=== PATIENT | female | born 1985 ===

== ENCOUNTER 2016-07-05 13:28 | Emergency (ER) | payer OTHER ==
--- NOTE | 2016-07-05 14:12 | UC ---
Throat Pain/Nasal Juarez HPI - HPI Summary HPI Summary: complaint nasal congestion and cough approx 9 days ago fever for 1 day, 3days ago- 102 sore throat which has been worsening intermittent headaches, feels fatigued denies N/V/D taking tylenol without relief - History of Current Complaint Chief Complaint: UCRespiratory Stated Complaint: COUGH SORE THROAT HEADACHE Time Seen by Provider: 07/05/16 14:04 Hx Obtained From: Patient - Allergies/Home Medications Allergies/Adverse Reactions: Allergies Allergy/AdvReac Type Severity Reaction Status Date / Time No Known Allergies Allergy Verified 07/05/16 13:47 Home Medications: Home Medications Acetaminophen [Tylenol] 650 mg PO 07/05/16 [History] PMH/Surg Hx/FS Hx/Imm Hx Previously Healthy: Yes Endocrine History Of: Denies: Diabetes, Thyroid Disease Cardiovascular History Of: Denies: Cardiac Disorders, Hypertension Respiratory History Of: Denies: COPD, Asthma GI/ History Of: Denies: Ulcer - Surgical History Surgical History: None - Family History Known Family History: Negative: Cardiac Disease, Hypertension, Diabetes - Social History Occupation: Employed Full-time Lives: With Family Alcohol Use: None Substance Use Type: None Smoking Status (MU): Never Smoked Tobacco Review of Systems Constitutional: Fever Skin: Negative Eyes: Negative ENT: Sore Throat, Ear Ache, Nasal Discharge Respiratory: Cough Cardiovascular: Negative Gastrointestinal: Negative Genitourinary: Negative Motor: Negative Neurovascular: Negative Musculoskeletal: Negative Neurological: Headache Psychological: Negative All Other Systems Reviewed And Are Negative: Yes Physical Exam Triage Information Reviewed: Yes Appearance: No Pain Distress, Well-Nourished Vital Signs: Initial Vital Signs Temp 97.8 F 07/05/16 13:44 Pulse 72 07/05/16 13:44 Resp 18 07/05/16 13:44 BP 107/74 07/05/16 13:44 Pulse Ox 100 07/05/16 13:44 Vital Signs Reviewed: Yes Eyes: Positive: Conjunctiva Clear ENT: Positive: Pharyngeal erythema, Nasal congestion, Nasal drainage, TMs normal , Tonsillar swelling, Tonsillar exudate Neck: Positive: No Lymphadenopathy Respiratory: Positive: Lungs clear, Normal breath sounds, No respiratory distress Cardiovascular: Positive: RRR, No Murmur, Pulses Normal Abdomen Description: Positive: Nontender, Soft Bowel Sounds: Positive: Present Musculoskeletal Exam: Normal Neurological: Positive: Alert Psychological Exam: Normal Skin Exam: Normal Throat Pain/Nasal Course/Dx - Differential Dx/Diagnosis Differential Diagnosis/HQI/PQRI: Pharyngitis, Tonsillitis, URI Provider Diagnoses: viral pharyngitis Discharge - Discharge Plan Condition: Stable Disposition: HOME Patient Education Materials: Pharyngitis (ED) Referrals: [facility] [facility] [Outside] Additional Instructions: PHARYNGITIS (Sore Throat) What is Pharyngitis? The medical name for a sore throat is Pharyngitis. It is caused by an infection or irritation of your throat or tonsils. The infection can be caused by a virus or by bacteria. Not everyone with Pharyngitis needs antibiotics. Antibiotics will not make viral infections better, and they will not help a sore throat caused by irritation. Symptoms May Include: Sore throat Swelling of the glands in the neck Trouble or pain with swallowing Fever Headache Cough Extreme tiredness Ear pain Treatment Recommendations: Gargle every few hours with a solution of 1/4 teaspoon of salt dissolved in 1/ 2 cup of warm water. Drink plenty of warm beverages, like tea with lemon, (with or without honey) and soup. You may eat and drink cold foods and liquids like frozen yogurt, popsicles, and ice water if that makes your throat feel better. The goal is to keep you well hydrated. Use a "cool-mist" vaporizer or humidifier in the room where you spend most of your time. If you get a sore throat often, consider adding an electronic air filter and humidifier to your furnace system. Don't smoke. Do not eat spicy foods. Take medicine exactly as prescribed. If you do not think it is helping, call your healthcare provider. Do not increase how much or how often you take it without getting their OK first. Non-prescription anti-inflammatory medicine like ibuprofen (Motrin, Advil) or naproxen (Aleve) may help lessen the pain. You should not take these medicines if you have had bleeding in your stomach in the past. Acetaminophen ( Tylenol) is another choice of medicine that may help the pain. If pain medicine that makes you tired or sleepy or contains narcotics is prescribed, you should not drink, drive, or participate in any other activities that you need to be clear-headed for. Please keep all medicines out of the reach of children. Do not get in close contact with anyone you know who has a sore throat. Use throat lozenges (Cepostat, [place], etc.) or suck on hard candy for temporary relief of the pain with swallowing. (Do not give to children under age 5.) Call Your Doctor or Return Here IF: Your symptoms do not start to get better within 2 days or you become worse. You have a fever over 101.0 F orally. You cant swallow liquids or saliva. You are drooling. You start to have trouble breathing. You start to have a rash. You start to have a stiff neck. You start to have pain in your chest. You start to have any symptoms that are new or worry you.
== END 2016-07-05 14:47 | disposition home or self-care (01) ==
LOC: UCEAST 13:28
DX: J02.9 Acute pharyngitis, unspecified (principal)
CPT/HCPCS: 87651; 99202; G0463